=== PATIENT | female | born 1950 | race Caucasian/White ===

== ENCOUNTER 2023-07-24 11:07 | Outpatient (RCR) | payer MEDICARE, OTHER, SELFPAY | END 2023-07-24 12:54 | disposition home or self-care (01) | LOC: RPT 11:07 | PROVIDERS: ATTENDING PHYSICIAN Physician Assistant; FAMILY PHYSICIAN Internal Medicine | DX: M54.16 Radiculopathy, lumbar region (principal); M51.36 Other intervertebral disc degeneration, lumbar region; M48.061 Spinal stenosis, lumbar region without neurogenic claudication; M53.3 Sacrococcygeal disorders, not elsewhere classified; Z73.6 Limitation of activities due to disability | CPT/HCPCS: 97110; 97112; 97140 ==

== ENCOUNTER → 2023-10-11 14:58 | Outpatient (REF) | payer MEDICARE, OTHER, SELFPAY | LOC: WDC 14:58 | PROVIDERS: ATTENDING PHYSICIAN Obstetrics & Gynecology Gynecology; FAMILY PHYSICIAN Internal Medicine | DX: Z12.31 Encounter for screening mammogram for malignant neoplasm of breast (principal) | CPT/HCPCS: 77063; 77067 ==

== ENCOUNTER 2024-09-01 06:22 | Day surgery (SDC) | payer MEDICARE, OTHER, SELFPAY | END 2024-09-01 12:28 | disposition home or self-care (01) | LOC: GI 06:22 | PROVIDERS: ATTENDING PHYSICIAN Internal Medicine Gastroenterology | DX: Z12.11 Encounter for screening for malignant neoplasm of colon (principal); K57.30 Diverticulosis of large intestine without perforation or abscess without bleeding | CPT/HCPCS: G0121 ==

== ENCOUNTER → 2024-10-09 14:20 | Outpatient (REF) | payer MEDICARE, OTHER, SELFPAY | LOC: HWRAD 14:20 | PROVIDERS: ATTENDING PHYSICIAN Hospitalist | DX: M25.561 Pain in right knee (principal) | CPT/HCPCS: 73560; 76882 ==

== ENCOUNTER → 2024-10-27 08:49 | Outpatient (REF) | payer MEDICARE, OTHER, SELFPAY | LOC: WDC 08:49 | PROVIDERS: ATTENDING PHYSICIAN Obstetrics & Gynecology Gynecology; FAMILY PHYSICIAN Internal Medicine | DX: Z12.31 Encounter for screening mammogram for malignant neoplasm of breast (principal) | CPT/HCPCS: 77063; 77067 ==

== ENCOUNTER 2024-12-08 14:34 | Inpatient (IN) | payer MEDICARE, OTHER, SELFPAY ==
[2024-12-08] VITALS (12 sets, daily range): BP systolic 0–111; BP diastolic 44–71; BMI 27.9
--- NOTE | 2024-12-08 09:21 | ED.GENMED ---
History of Present Illness
General
Chief Complaint: Abdominal Pain
Source: patient
Exam Limitations: none
Time Seen by Provider: 12/08/24 09:09
History of Present Illness
History of Present Illness:
73-year-old female presents with persistent right lower abdominal pain starting yesterday with associated nausea and loose stool. The pain is persistent made worse with motion. She notes a low-grade fever. The pain does not radiate to the. She
spoke with her family doctor who sent her in for evaluation no prior abdominal surgical history
Past History
Past History
ED Past Medical History: GERD, Hypercholesterolemia and Valvular disease (MVP)
ED Past Surgical History: Gynecological
Social History
Tobacco: Non-smoker
Alcohol: None
Personal:
Living: with family
Employment: Employed
Family History
Family History: Diabetes and CAD
Phy Exam
Physical Exam
Physical Exam:
General: Well-appearing female no acute respiratory distress
HEENT: Normocephalic atraumatic heart: Regular rate and rhythm
Lungs: Clear no wheeze
Abdomen soft quite tender with mild guarding to the right lower quadrant nondistended
Extremities: No cyanosis
Course
Orders/Labs/Results
Orders:
Orders
12/08/24 09:17
CT Abd/pelvis W Iv Cont Urgent
Comment:
Reason For Exam: rlq pain, nausea
0.9% Sodium Chloride 1000 ml [Nss] 1,000 ml IV BOLUS
Ketorolac [Toradol] 15 mg IV NOW STA
Ondansetron Injectable [Zofran] 4 mg IV NOW STA
12/08/24 09:24
Complete Blood Count/With Diff Urgent
Comprehensive Metabolic Panel Urgent
Urinalysis Reflex To Culture Urgent
Date Specimen was Collected: 12/08/24
Time Specimen was Collected: 09:22
Urine Microscopic Reflex Cult Urgent
12/08/24 11:14
Piperacillin/Tazo 3.375 Gram [Zosyn] 3.375 gram in 50 ml IV NOW
Abnormal Lab Results
12/08/24
09:24
WBC 12.1 H 10^3/uL
(4.8-10.8)
RDW 14.6 H %
(11.5-14.5)
Absolute Neuts (auto) 10.0 H 10^3/uL
(1.4-6.5)
Absolute Lymphs (auto) 1.1 L 10^3/uL
(1.2-3.4)
Absolute Monos (auto) 0.9 H 10^3/uL
(0.1-0.6)
Neutrophils % 82.8 H %
(42.2-75.2)
Lymphocytes % 9.4 L %
(20.5-51.1)
Glucose 109 H mg/dl
(70-99)
Total Bilirubin 1.8 H mg/dl
(0.2-1.3)
Urine Ketones 3+ A
(Negative)
Urine Albumin (Reflex) 2+ A
(Neg - Trace)
12/08/24 09:24
12/08/24 09:24
Vital Signs
Initial and Last Documented VS:
Initial Vital Signs
Temp Pulse Resp BP Pulse Ox
99.1 F 94 16 107/71 99
12/08/24 08:51 12/08/24 08:51 12/08/24 08:51 12/08/24 08:51 12/08/24 08:51
Last Documented Vital Signs
Temp Pulse Resp BP Pulse Ox
99.1 F 94 16 111/51 96
12/08/24 08:51 12/08/24 08:51 12/08/24 08:51 12/08/24 10:00 12/08/24 10:15
MDM/Problems Addressed
Differential Diagnosis Includes:
Right lower abdominal pain. Consider appendicitis was constipation versus colitis versus adenitis
Check labs and urine. Treat symptoms with Zofran Toradol fluids. CT pending
*Critical Care Note
Total Time (30-74mins, 75-104mins- exclusive of procedures): Not Applicable
Update Note
Update Note:
CT demonstrates acute appendicitis. No evidence of abscess or rupture. Zosyn ordered. Notify general surgery
ED Attending Note
-
Portions of this chart may have been created with voice recognition software.� Occasional wrong word or��sound alike� substitutions may have occurred due to the inherent limitations of voice recognition software.
Discharge Plan
Departure
Patient Disposition: Admit
Date of Disposition: 12/08/24
Time of Disposition: 11:15
Presentation/result/management discussed w/ accepting MD/DO: Lucy
Discharge Problem:
Acute appendicitis
Prescriptions:
No Action
Lipitor
1 tab PO DAILY
Prevacid
1 tab PO BID
ondansetron HCl 4 MG tablet
4 mg PO TIDPRN PRN (Reason: nausea and vomiting) Qty: 10 0RF
famotidine 20 MG tablet
20 mg PO BID Qty: 20 0RF
Referrals:
Jewel Jose MD [Family Provider] -
Interventions
Interventions:
*Risk Screen - Suicide Last Done: 12/08/24 09:23
*General Assessment Last Done: 12/08/24 09:23
*Neglect/Abuse Screening Last Done: 12/08/24 09:23
*ED- Fall Risk Assessment Last Done: 12/08/24 09:14
*ED COVID-19 Vaccine History Last Done: 12/08/24 09:23
VT-Airehz-Wclmmxeyal Assessment Last Done: 12/08/24 09:14
Discharge Date and Time
Print Language: PARAGUAYAN
[2024-12-08] MEDS: TORADOL 15 MG IV (09:28)
[2024-12-08] MEDS: ZOFRAN 4 MG IV (09:28)
[2024-12-08] MEDS: NSS 1000 IV ×3 (09:28→23:19)
[2024-12-08 09:46] LABS: % Basophils 0.3 % (0-2); % Eosinophils 0.2 % (0-6); % Immature Granulocytes 0.3 % (0-0.5); % Lymphocytes 9.4 % (20.5-51.1); % Neutrophils 82.8 % (42.2-75.2); Absolute Lymphocytes 1.1 10^3/uL (1.2-3.4); Absolute Monocytes 0.9 10^3/uL (0.1-0.6); Hematocrit 39.5 % (37.0-47.0); Hemoglobin 13.3 g/dL (12.0-16.0); Mean Corp Hgb Conc. 33.7 g/dL (33.0-37.0); Mean Corpuscular Hgb 29.4 pg (27.0-31.0); Mean Corpuscular Volume 87.2 fL (81.0-99.0); Mean Platelet Volume 8.8 fL (7.4-10.4); Nucleated Red Blood Cells % 0 %; Platelet Count 315 10^3/uL (130-400); Red Blood Cell Count 4.53 10^6/uL (4.20-5.40); Red Cell Dist. Width 14.6 % (11.5-14.5); White Blood Cell Count 12.1 10^3/uL (4.8-10.8)
[2024-12-08 10:06] LABS: ALT (SGPT) 17 U/L (0-35); AST (SGOT) 20 U/L (14-36); Alkaline Phosphatase 116 U/L (38-126); Blood Urea Nitrogen 17 mg/dl (7-17); Calcium 9.6 mg/dl (8.4-10.2); Carbon Dioxide 27 mmol/L (22-30); Chloride 104 mmol/L (98-107); Estimated Creatinine Clearance 62 ml/min; Glucose 109 mg/dl (70-99); Potassium 4.4 mmol/L (3.5-5.1); Sodium 136 mmol/L (135-145); Total Bilirubin 1.8 mg/dl (0.2-1.3); Total Protein 6.8 g/dl (6.3-8.2); eGFR > 60.00
[2024-12-08 11:17] LABS: Urine Albumin 2+ (Neg - Trace); Urine Bilirubin Negative (Negative); Urine Character Clear (Clear); Urine Color Yellow; Urine Glucose Negative (Negative); Urine Ketone 3+ (Negative); Urine Leukocyte Negative (Negative); Urine Nitrite Negative (Negative); Urine Occult Blood Negative (Negative); Urine Urobilinogen Negative (Neg - 1+)
[2024-12-08] MEDS: ZOSYN 50 IV ×3 (11:21→23:19)
[2024-12-08 11:25] LABS: Urine Mucus Moderate; Urine Squamous Cell 21-25 /LPF (Few)
[2024-12-08 11:26] LABS: Urine Hyaline Cast 0-2 /LPF (0-2)
[2024-12-08 11:27] LABS: Urine Bacteria Few (Negative)
[2024-12-08] MEDS: DILAUDID 0.5 MG IV (11:27)
--- NOTE | 2024-12-08 12:04 | HP.FOC2 ---
Focused History & Physical
Chief Complaint
HPI:
Chief Complaint: Abdominal pain
HPI / Indication for Planned Procedure: 73-year-old female who developed the acute onset of abdominal pain this past evening which progressively increased in severity and localized to the right lower quadrant prompting emergency department
evaluation. Nausea and anorexia but no vomiting. Normal bowel movements yesterday. Looser stool this a.m. No similar episodes in the past. Pain persists.
Relevant Past Medical History: Other (Hypercholesterolemia, GERD)
Relevant Social History: Negative
Relevant Family History: Negative
Relevant Past Surgical History: Positive for (Tubal)
Review of Systems
Review of Pertinent Systems: All Systems Negative
Medication
See Medication form for detailed medications: Yes
Medication List (including Herbals & OTC):
atorvastatin 80 mg tablet (Lipitor) 80 mg PO QPM 03/29/18
calcium carbonate 500 mg PO DAILY 12/08/24
ezetimibe 10 mg tablet (Zetia) 10 mg PO QPM 12/08/24
Medications Reviewed: Yes
Allergies and Reactions
Patient has Allergies: Yes
Noted Allergies and Reactions:
Allergy/AdvReac Type Severity Reaction Status Date / Time
seasonal allergies Allergy congestion Uncoded 12/08/24 08:54
Pertinent Physical Exam
All Other Systems: Negative
Head/Neck: Normal
Lungs: Normal
Heart: Normal
Abdomen: Other (Soft, mildly distended, tenderness palpation localized in right lower quadrant with voluntary guarding and rebound)
Extremities: Normal
Neurological: Normal
Diagnosis / Assessment
Assessment: 73-year-old female with acute appendicitis.
Reviewed with patient history, examination and CT imaging consistent with acute appendicitis. Discussed both operative and nonoperative management options and associated risks/benefits of approaches. Patient is in agreement to proceed with
appendectomy.
Laparoscopic appendectomy reviewed in detail with the patient. Discussed operative technique utilizing diagrams or drawings, alternative management options, benefits and potential risks such as but not limited to bleeding, infectious or wound
healing complications, iatrogenic injury to surrounding viscera. Discussed the typical postoperative recovery pending operative findings.
Any of the patient's concerns or questions were fully addressed and informed consent was obtained.
Plan: OR for laparoscopic appendectomy.
Empiric antibiotic coverage with Zosyn in the emergency department.
Nothing by mouth, IV fluid hydration and supportive care awaiting operative room availability.
SCDs for DVT prophylaxis
Plan / Procedure
Laparoscopic appendectomy
Anesthesia/Sedation to be done by Anesthesia Provider: Yes
--- NOTE | 2024-12-08 12:07 | W.SUR.PREOP ---
Pre-Operative Surgical Note
-
I have examined this patient prior to the performance of the scheduled procedure.
The patient's condition is unchanged from the time of the current History and
Physical and the patient is able to undergo the scheduled procedure.
--- NOTE | 2024-12-08 13:50 | W.IMMPOSTOP ---
Addendum entered and electronically signed by Gildardo Ayala MD 12/08/24 14:07:
#[id number]
Original Note:
Surgical Immed Post Op Note
-
Primary Surgeon: Lucy
Assisting Surgeon: None
Pre-op Diagnosis: Acute appendicitis
Post-op Diagnosis: Perforated acute appendicitis with generalized purulent peritonitis
Procedure Performed: Laparoscopic appendectomy
Anesthesia Type: GETA +0.25% Marcaine
Specimen / Cultures: Appendix/none
Estimated Blood Loss: 4 mL
Complications: None immediate
Drains: 19 Michi drain placed into the pelvis and right lower quadrant
Operative Findings: Gangrenous/freely perforated acute appendicitis. Perforation in mid appendix. Base of appendix/cecum without significant inflammatory changes. Copious amounts of purulent free fluid throughout pelvis, right lower quadrant
right upper quadrant and left lower quadrant with generalized peritonitis. Mesoappendix divided with harmonic. Base of the appendix taken flush with cecum with Endo JOSE hinojosa 45 mm stapler.
2 L irrigation to washout all 4 quadrants and pelvis.
Plan: Zosyn postop
Clear liquids monitoring for ileus postoperatively
IVFs
Follow drain outputs
[2024-12-08] MEDS: TYLENOL 650 MG PO ×3 (14:31→23:43)
[2024-12-08] MEDS: LOVENOX 40 MG SC (17:15)
[2024-12-09 03:00] VITALS: BP 100/50
[2024-12-09] MEDS: TYLENOL 650 MG PO ×2 (05:02→11:14)
[2024-12-09] MEDS: ZOSYN 50 IV ×4 (05:38→23:04)
--- NOTE | 2024-12-09 07:15 | W.PN.GS2 ---
Today's Communication / Plan
-
`
Assessment / Plan
-
Assessment: 73 y/o female POD#1 s/p lap appy for perforated appendicitis - purulent, generalized peritonitis
AFVSS
overall doing well post op
awaiting return of GI function
ALOK expected character and quantity
Plan: multimodal pain control options
clear liquid diet, await signs of returning GI function to advance
OOBTC/ambulate today
renewed IVFs
AM labs pending
Zosyn for empiric coverage perforated appendicitis - 10day post op course of abx with transition to Augmentin on d/c anticipated
SCDs/Lovenox for VTEp
Protonix - h/o GERD
Subjective Data
-
Date of Service: December 09, 2024
pt seen and examined
post op incisional pain controlled primarily with tylenol
no nausea but + distention/bloating
no flatus. no BM
able to void
Objective Data
-
Intake and Output
12/08/24 12/09/24 12/10/24
06:59 06:59 06:59
Intake Total 2004
Output Total 260 / 260
Balance 1745 / 1745
Intake:
Oral fluids 480 / 480
IV fluids (Total) 1420 / 1420
Normosol 100 / 100
IV piggybacks 100 / 100
Amount instilled into Drain ( 5 / 5
Total)
Left Song-Covarrubias 5 / 5
Output:
Drain Output (Total) 110 / 110
Left Song-Covarrubias 110 / 110
Urine, Voided 150 / 150
Other:
Number of approximated MODERATE 2
amounts of urine
Vital Signs
Temp Pulse Resp BP Pulse Ox
98.4 F 80 17 100/50 97
12/09/24 03:00 12/09/24 03:00 12/09/24 03:00 12/09/24 03:00 12/09/24 03:00
Calcium 9.6 mg/dl (8.4-10.2) 12/08/24 09:24
Total Bilirubin 1.8 mg/dl (0.2-1.3) H 12/08/24 09:24
AST 20 U/L (14-36) 12/08/24 09:24
ALT 17 U/L (0-35) 12/08/24 09:24
Alkaline Phosphatase 116 U/L (38-126) 12/08/24 09:24
Total Protein 6.8 g/dl (6.3-8.2) 12/08/24 09:24
Albumin 4.0 g/dl (3.5-5.0) 12/08/24 09:24
Physical Exam
-
NAD AAOx3
ABD: distended, localized incision and RLQ tenderness
incisions with glue dressings
ALOK with murky SSF fluid
[2024-12-09 07:30] VITALS: BP 95/52
[2024-12-09] MEDS: PROTONIX IV 40 MG IV (07:37)
[2024-12-09] MEDS: NSS (PRESERVATIVE FREE) 10 ML IV (07:37)
[2024-12-09 07:51] LABS: Hematocrit 32.8 % (37.0-47.0); Mean Corp Hgb Conc. 33.5 g/dL (33.0-37.0); Mean Corpuscular Hgb 29.3 pg (27.0-31.0); Mean Corpuscular Volume 87.5 fL (81.0-99.0); Mean Platelet Volume 9.5 fL (7.4-10.4); Platelet Count 229 10^3/uL (130-400); Red Blood Cell Count 3.75 10^6/uL (4.20-5.40); Red Cell Dist. Width 14.7 % (11.5-14.5); White Blood Cell Count 12.5 10^3/uL (4.8-10.8)
[2024-12-09 08:28] LABS: Blood Urea Nitrogen 15 mg/dl (7-17); Calcium 8.3 mg/dl (8.4-10.2); Carbon Dioxide 20 mmol/L (22-30); Chloride 107 mmol/L (98-107); Estimated Creatinine Clearance 72 ml/min; Glucose 90 mg/dl (70-99); Potassium 3.7 mmol/L (3.5-5.1); Sodium 131 mmol/L (135-145); eGFR > 60.00
--- NOTE | 2024-12-09 10:16 | CM ---
CM met with patient in room. Patient lives independently with spouse. Patient does not have a history of VN, SNF or DME. Patient is active with her PCP> Patient has medication coverage.
PLAN: Home with no needs.
[2024-12-09 11:14] VITALS: BP 124/106
[2024-12-09] MEDS: MYLICON 80 MG PO ×2 (13:41→23:04)
[2024-12-09] MEDS: NSS 1000 IV ×2 (14:00→23:57)
[2024-12-09 15:18] VITALS: BP 107/48
[2024-12-09] MEDS: TORADOL 10 MG IV (16:13)
[2024-12-09] MEDS: LOVENOX 40 MG SC (17:03)
[2024-12-09] MEDS: DILAUDID 0.25 MG IV ×2 (18:15→23:12)
[2024-12-09 23:00] VITALS: BP 109/57
[2024-12-10] MEDS: ZOSYN 50 IV ×4 (05:17→23:09)
--- NOTE | 2024-12-10 07:17 | W.PN.GS2 ---
Today's Communication / Plan
-
`
Assessment / Plan
-
Assessment: 73 y/o female POD#2 s/p lap appy for perforated appendicitis - purulent, generalized peritonitis
AFVSS
overall expected post op course given severity of appendicitis
awaiting further signs of return of GI function
ALOK expected character and quantity
hyponatremia - repeat BMP pending
anemia likely reflective of dilution with IVFs as blood loss was minimal intraop - AM CBC pending
Plan: multimodal pain control options
clear liquid diet, await signs of returning GI function to advance
ALOK
OOBTC/ambulate today
renewed IVFs
AM labs pending
Zosyn for empiric coverage perforated appendicitis - 10day post op course of abx with transition to Augmentin on d/c anticipated
SCDs/Lovenox for VTEp
Protonix - h/o GERD
Subjective Data
-
Date of Service: December 10, 2024
pt seen and examined
pain was worse overnight, improved a bit this AM; utilized Dilaudid, Toradol not as effective
no nausea, no vomiting
passing occasional flatus but still feels distended and uncomfortable
Objective Data
-
Intake and Output
12/09/24 12/10/24 12/11/24
06:59 06:59 06:59
Intake Total 2004 3780 / 3780
Output Total 260 / 260 30 / 30
Balance 1745 / 1745 3750 / 3750
Intake:
Oral fluids 480 / 480 1160 / 1160
IV fluids (Total) 1420 / 1420 2420 / 2420
Normosol 100 / 100
IV piggybacks 100 / 100 200 / 200
Amount instilled into Drain (
Total)
Left Song-Covarrubias
Output:
Drain Output (Total) 110 /
Left Song-Covarrubias 110
Urine, Voided 150 / 150
Other:
Number of approximated MODERATE 2 4
amounts of urine
Vital Signs
Temp Pulse Resp BP Pulse Ox
99.1 F 94 18 109/57 95
12/09/24 23:00 12/09/24 23:00 12/09/24 23:00 12/09/24 23:00 12/10/24 01:15
Calcium 8.3 mg/dl (8.4-10.2) L 12/09/24 06:44
Total Bilirubin 1.8 mg/dl (0.2-1.3) H 12/08/24 09:24
AST 20 U/L (14-36) 12/08/24 09:24
ALT 17 U/L (0-35) 12/08/24 09:24
Alkaline Phosphatase 116 U/L (38-126) 12/08/24 09:24
Total Protein 6.8 g/dl (6.3-8.2) 12/08/24 09:24
Albumin 4.0 g/dl (3.5-5.0) 12/08/24 09:24
Physical Exam
-
NAD AAOx3
ABD: softly distended, TTP b/l LQ and suprapubic area with guarding
upper abdomen minimal tenderness
incisions with glue dressing
ALOK with SSF
[2024-12-10] MEDS: PROTONIX IV 40 MG IV (07:19)
[2024-12-10] MEDS: NSS (PRESERVATIVE FREE) 10 ML IV (07:19)
[2024-12-10 07:22] LABS: Hematocrit 31.9 % (37.0-47.0); Hemoglobin 10.3 g/dL (12.0-16.0); Mean Corp Hgb Conc. 32.3 g/dL (33.0-37.0); Mean Corpuscular Hgb 28.7 pg (27.0-31.0); Mean Corpuscular Volume 88.9 fL (81.0-99.0); Mean Platelet Volume 9.5 fL (7.4-10.4); Platelet Count 230 10^3/uL (130-400); Red Blood Cell Count 3.59 10^6/uL (4.20-5.40); Red Cell Dist. Width 14.8 % (11.5-14.5); White Blood Cell Count 11.2 10^3/uL (4.8-10.8)
[2024-12-10] MEDS: TORADOL 10 MG IV ×3 (07:24→23:08)
[2024-12-10 07:33] VITALS: BP 108/62
[2024-12-10 08:24] LABS: Blood Urea Nitrogen 11 mg/dl (7-17); Calcium 8.5 mg/dl (8.4-10.2); Carbon Dioxide 21 mmol/L (22-30); Chloride 108 mmol/L (98-107); Estimated Creatinine Clearance 54 ml/min; Glucose 67 mg/dl (70-99); Sodium 133 mmol/L (135-145); eGFR > 60.00
[2024-12-10 09:16] LABS: Glucose - Point of Care 110 mg/dl (70-99)
--- NOTE | 2024-12-10 09:42 | PTCARENOTE ---
AM labs glucose 67. Per protocol checked blood sugar fingerstick in 15 minutes and was 110. Care ongoing.
[2024-12-10] MEDS: NSS 1000 IV ×2 (10:05→20:04)
[2024-12-10] MEDS: TYLENOL 650 MG PO ×2 (11:59→20:05)
[2024-12-10 15:57] VITALS: BP 112/66
[2024-12-10] MEDS: MYLICON 80 MG PO (16:44)
[2024-12-10] MEDS: LOVENOX 40 MG SC (17:29)
--- NOTE | 2024-12-10 17:41 | DOWNTIME ---
There was a [employer] Downtime on 12/10/2024 from 1230 to 12/10/2024 at 1550. Downtime documentation of patient's care, including medication administrations, has been reconciled in the electronic record per guidelines. Refer to the
patient's paper chart under the miscellaneous tab to see printed paper medication records and downtime forms.
[2024-12-10 23:23] VITALS: BP 127/68
[2024-12-11] MEDS: MYLICON 80 MG PO ×2 (02:54→08:33)
[2024-12-11] MEDS: NSS 1000 IV (05:09)
[2024-12-11] MEDS: TORADOL 10 MG IV ×2 (05:09→11:18)
[2024-12-11] MEDS: ZOSYN 50 IV ×2 (05:09→11:12)
[2024-12-11 07:00] VITALS: BP 130/69
[2024-12-11] MEDS: PROTONIX IV 40 MG IV (08:25)
[2024-12-11] MEDS: NSS (PRESERVATIVE FREE) 10 ML IV (08:26)
--- NOTE | 2024-12-11 09:15 | W.PN.GS2 ---
Today's Communication / Plan
-
`
Assessment / Plan
-
Assessment: 73 y/o female POD#3 s/p lap appy for perforated appendicitis - purulent, generalized peritonitis
AFVSS
Doing well postop with returning GI function
hyponatremia -improving
anemia likely reflective of dilution with IVFs as blood loss was minimal intraop -stable
Plan: Removed ALOK
Regular diet for breakfast
If tolerates, pain controlled, no nausea then anticipate discharge home
Outpatient follow-up in 2 weeks, DC instructions reviewed
Prescription provided for total of a 10-day course of postop antibiotics
Subjective Data
-
Date of Service: December 11, 2024
Patient seen and examined.
Feeling a bit better. Less distended/tight. Pain control improved.
Passing flatus and has had a few semiformed bowel movements.
No nausea, appetite slowly improving.
Ambulating
Objective Data
-
Intake and Output
12/10/24 12/11/24 12/12/24
06:59 06:59 06:59
Intake Total 3780 / 3780 3820 / 3820
Output Total 30 / 30 100 / 100
Balance 3750 / 3750 3720 / 3720
Intake:
Oral fluids 1160 / 1160 1080 / 1080
IV fluids (Total) 2420 / 2420 2640 / 2640
IV piggybacks 200 / 200 100 / 100
Output:
Drain Output (Total) 30 / 30 100 / 100
Left Song-Covarrubias 30 / 30 100 / 100
Other:
Number of approximated SMALL 1
amounts of urine
Number of approximated MODERATE 4 3
amounts of urine
How many times incontinent 1
MODERATE amount urine
Vital Signs
Temp Pulse Resp BP Pulse Ox
99.3 F 85 16 130/69 98
12/11/24 07:00 12/11/24 07:00 12/11/24 07:00 12/11/24 07:00 12/11/24 07:00
Lab Results
12/10/24 06:21
12/10/24 06:21
Calcium 8.5 mg/dl (8.4-10.2) 12/10/24 06:21
Total Bilirubin 1.8 mg/dl (0.2-1.3) H 12/08/24 09:24
AST 20 U/L (14-36) 12/08/24 09:24
ALT 17 U/L (0-35) 12/08/24 09:24
Alkaline Phosphatase 116 U/L (38-126) 12/08/24 09:24
Total Protein 6.8 g/dl (6.3-8.2) 12/08/24 09:24
Albumin 4.0 g/dl (3.5-5.0) 12/08/24 09:24
Physical Exam
-
NAD AAO x 3
ABD: Softly distended, mild tenderness palpation less so than previously.
ALOK with clearing serosanguineous fluid, nonpurulent
--- NOTE | 2024-12-11 09:22 | W.DS.TRANS ---
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
-
Discharge Instructions:
Discharge Diagnosis/Procedures Acute appendicitis - perforated with peritonitis
. Laparoscopic appendectomy
Diet As tolerated,Regular
Additional Diets Smaller meals initially after surgery as
abdominal bloating and distention may be common
for the first few days
Activity No strenuous activity
Additional Activity No lifting over 20 pounds for 2 to 3 weeks
postop
Driving Restrictions No driving 2 to 3 days or if using narcotics
Bathing Restrictions OK to Shower
Wound Care Glue at surgical sites typically peels off in 2
to 3 weeks. Gauze dressing at old drain site
may be removed 24 hours or sooner if needed.
Replace with dry gauze or Band-Aid daily and as
needed for drainage.
Instructions:
Stand-Alone Forms:
Changes to Home Medications: No
Discharge Medications:
DC Medications w/original date entered in [employer]
atorvastatin 80 mg tablet (Lipitor) 80 mg PO QPM High Cholesterol 03/29/18
calcium carbonate 500 mg PO DAILY Supplement 12/08/24
ezetimibe 10 mg tablet (Zetia) 10 mg PO QPM High Cholesterol 12/08/24
acetaminophen 500 mg tablet (Tylenol Extra Strength) 1,000 mg (2 x 500 mg) PO Q6HPRN PRN mild pain #1 tab 12/11/24
amoxicillin 875 mg-potassium clavulanate 125 mg tablet 1 tab PO Q12 antibiotic #16 tabs 12/11/24
ibuprofen 200 mg tablet 400 mg (2 x 200 mg) PO Q6HPRN PRN moderate pain #1 tab 12/11/24
oxycodone 5 mg tablet 5 mg PO Q4HPRN PRN breakthrough/severe pain #5 tabs 12/11/24
Home Medication Changes
Pending Results: No
--- NOTE | 2024-12-11 09:30 | CM ---
Addendum entered by Arely Bates 12/11/24 11:06:
Met with patient at bedside; IMM benefit explained; form signed @ 1100
Original Note:
Plan: Discharge to home; no needs; reported she has transport home
[2024-12-11 13:36] VITALS: BP 143/75
--- NOTE | 2024-12-16 07:34 | W.DCSUMMARY ---
Discharge Summary
Discharge Data
Date of Admission: 12/08/24
Date of Discharge: 12/11/24
-
Pending Results: No
Hospital Course
The patient is a 74-year-old female who was admitted on 12/08/2024 secondary to the acute onset of abdominal pain localized in the right lower quadrant. CT imaging consistent with acute appendicitis and after discussions patient was agreement to
proceed with appendectomy. She underwent laparoscopic appendectomy on the date of admission with operative findings identifying a gangrenous, freely perforated appendix in the mid section with copious amounts of purulent free fluid throughout the
pelvis. Appendectomy was completed uneventfully. 2 L of irrigation was utilized to washout all 4 quadrants of the pelvis of the abdomen. A 19 Michi drain was placed as well for postoperative drainage.
Her postoperative course was in the expected manner with a moderate ileus requiring bowel rest on a clear liquid diet for comfort, IV fluid hydration and supportive care. Zosyn was continued for empiric coverage of perforated appendicitis. By
postoperative day 3 patient was experiencing full GI recovery with semiformed bowel movements, tolerance of dietary advancement. ALOK was clearing and removed. She was deemed stable for discharge.
Patient was discharged on Augmentin for total of a 10-day course of postoperative antibiotics. Outpatient surgical follow-up was advised. Postoperative DC instructions reviewed.
Discharge Plan
-
Patient Disposition: Home (Routine Discharge)
Discharge Diagnosis/Procedures: Acute appendicitis - perforated with peritonitis. Laparoscopic appendectomy
Condition: Good
Diet: As tolerated and Regular
Additional Diets: Smaller meals initially after surgery as abdominal bloating and distention may be common for the first few days
Activity: No strenuous activity
Additional Activity: No lifting over 20 pounds for 2 to 3 weeks postop
Driving Restrictions: No driving 2 to 3 days or if using narcotics
Bathing Restrictions: OK to Shower
Wound Care: Glue at surgical sites typically peels off in 2 to 3 weeks. Gauze dressing at old drain site may be removed 24 hours or sooner if needed. Replace with dry gauze or Band-Aid daily and as needed for drainage.
Activity Restrictions/Additional Instructions:
�Gildardo Ayala MD [facility] General Surgery
[facility]
[address], [address]
[place] [address]
[phone]
Initial Post-Operative Instructions for Laparoscopic Surgery
The incision sites are sealed with a surgical glue dressing.� It is safe to shower at any time after surgery when the glue is dry.� Let shower water run over the incisions and then pat dry.
Glue dressing typically peels off in 2-3 weeks.
Abdominal/incisional pain and discomfort, shoulder/scapular pain, bloating, and mild nausea, as well as bruising/stiffness and swelling at the incision sites are common after surgery.� If felt to be excessive, notify us.
Please start postoperative pain management using over the counter medications such as Tylenol and Ibuprofen, per instructions on the bottle, as long as there are no medical reasons why you cannot take these medications.
Ice the incisions sites for 20 minutes every hour or so to help with postoperative incisional pain and reduce postoperative surgical site swelling.� Take care NOT to get an ice burn on the skin surface.
A warm heating pad is often helpful to alleviate shoulder/scapular back pains after laparoscopic procedures.� This pain typically dissipates 24-72hrs post op.
Resume a regular diet initially with smaller meal sizes for 24-36hrs after surgery if not experiencing postoperative nausea or significant bloating/distention.
Constipation is common following surgery and postoperative narcotic use.� May use a stool softener such as Colace (100 mg 2x day) to prevent constipation
If no BM 24hrs after surgery, recommend starting daily Miralax
If no BM in 24-48hrs after starting Miralax --> recommend then using a dose of magnesium citrate or milk of magnesia with a Senokot tablet to help alleviate post operative constipation as long as there is no nausea/vomiting and passing gas.
Resume all preoperative medications as prescribed, unless directed otherwise.
Do not drive or drink alcohol for 24 hrs after having anesthesia or while taking narcotic pain medications.
Resume regular daily light activities, such as walking, standing and going up/down stairs as tolerated within 24hrs of surgery.� Please refrain from lifting over 15-20 lbs or strenuous exercise until postoperative follow up visit &/or approximately
3-4 weeks.�
Call the office with a fever above 101� F, nausea with vomiting, severe abdominal pain, spreading redness and drainage from incision sites or with any concerns/questions.
Please call the office to schedule or confirm your postoperative surgical follow-up office visit with Dr. Aayla.
Referrals:
Gildardo Ayala MD [Active, Surgical] - in two weeks
Jewel Jose MD [Family Provider, Internal Medicine]
Prescriptions:
New
acetaminophen [Tylenol Extra Strength] 500 mg tablet
1,000 mg PO Q6HPRN PRN (Reason: mild pain) Qty: 1 0RF
ibuprofen 200 mg tablet
400 mg PO Q6HPRN PRN (Reason: moderate pain) Qty: 1 0RF
amoxicillin-pot clavulanate 875-125 mg tablet
1 tab PO Q12 Qty: 16 0RF
oxycodone 5 mg tablet
5 mg PO Q4HPRN PRN (Reason: breakthrough/severe pain) Qty: 5 0RF
Continued
atorvastatin [Lipitor] 80 mg Tablet
80 mg PO QPM
calcium carbonate 500 mg calcium (1,250 mg) Tablet
500 mg PO DAILY
ezetimibe [Zetia] 10 mg Tablet
10 mg PO QPM
Discharge Orders:
Discharge Patient (As Directed); Ordered 12/11/24
Ordered By: Gildardo Ayala
Discharge Date and Time
Discharge Date/Time: 12/11/24 14:01
Print Language: INDONESIAN
== END 2024-12-11 14:01 | disposition home or self-care (01) | DRG 398 ==
LOC: 2 SOUTH 14:34
PROVIDERS: Physician Assistant; ADMITTING PHYSICIAN Surgery; EMERGENCY PHYSICIAN Emergency Medicine; FAMILY PHYSICIAN Internal Medicine
PROC: 0DTJ4ZZ Resection of Appendix, Percutaneous Endoscopic Approach (ICD-10-PCS; 2024-12-08)
DX: K35.32 Acute appendicitis with perforation, localized peritonitis, and gangrene, without abscess (principal); E87.1 Hypo-osmolality and hyponatremia; K38.1 Appendicular concretions; D25.9 Leiomyoma of uterus, unspecified; E78.00 Pure hypercholesterolemia, unspecified; K21.9 Gastro-esophageal reflux disease without esophagitis; D64.9 Anemia, unspecified
CPT/HCPCS: 88304; 74177; 80048; 80053; 81003; 81015; 82962; 85025; 85027; 96361; 96365; 96375; 99285; Q9967

== ENCOUNTER → 2024-12-26 15:50 | Outpatient (REF) | payer MEDICARE, OTHER, SELFPAY | LOC: RCS 15:50 | PROVIDERS: ATTENDING PHYSICIAN Internal Medicine Cardiovascular Disease; FAMILY PHYSICIAN Internal Medicine | DX: R06.02 Shortness of breath (principal); I34.0 Nonrheumatic mitral (valve) insufficiency | CPT/HCPCS: 93306 ==

== ENCOUNTER → 2025-01-30 14:23 | Outpatient (REF) | payer MEDICARE, OTHER, SELFPAY | LOC: RAD 14:23 | PROVIDERS: ATTENDING PHYSICIAN Hospitalist | DX: R06.81 Apnea, not elsewhere classified (principal) | CPT/HCPCS: 71046 ==

== ENCOUNTER → 2025-02-11 07:51 | Outpatient (REF) | payer MEDICARE, OTHER, SELFPAY | LOC: HWRAD 07:51 | PROVIDERS: ATTENDING PHYSICIAN Hospitalist; FAMILY PHYSICIAN Internal Medicine | DX: R06.81 Apnea, not elsewhere classified (principal) | CPT/HCPCS: 76700 ==

== ENCOUNTER → 2025-03-05 13:15 | Outpatient (REF) | payer MEDICARE, OTHER, SELFPAY | LOC: RAD 13:15 | PROVIDERS: ATTENDING PHYSICIAN Internal Medicine | DX: R06.00 Dyspnea, unspecified (principal); R93.89 Abnormal findings on diagnostic imaging of other specified body structures | CPT/HCPCS: 71046 ==

== ENCOUNTER → 2025-05-01 12:52 | Outpatient (REF) | payer MEDICARE, OTHER, SELFPAY | LOC: RCS 12:52 | PROVIDERS: ATTENDING PHYSICIAN Internal Medicine Cardiovascular Disease; FAMILY PHYSICIAN Internal Medicine | DX: R06.02 Shortness of breath (principal) | CPT/HCPCS: 93017; 93350 ==